=== PATIENT | male | born 2000 | race Caucasian/White ===

== ENCOUNTER 2024-07-23 09:56 | Emergency (ER) | payer BC, SELFPAY ==
--- OUTSIDE RECORDS SUMMARY | 2024-07-23 09:59 | XMS_ITS | Summary of Care ---
Author Organization [facility] Address Unknown Care Team Providers Care Neonatal Surgeon Name Role Phone Iva Duncan Primary Care Physician Encounter [employer] Date(s): 04/06/20 - 04/06/20 [facility] Encounter Diagnosis Hypothyroidism(Discharge Diagnosis) - 04/06/20 Diabetes mellitus type 1(Discharge Diagnosis) - 04/06/20 Discharge Disposition: Home/Self Care Attending Physician: Anna Katz Admitting Physician: Anna Katz Referring Physician: Iva Duncan MD Vital Signs Most recent to oldest [Reference Range]: 1 Chief Complaint diabetes follow up (04/06/20 2:17 PM) Pulse Rate [61-90 bpm] 68 bpm (04/06/20 2:17 PM) Blood Pressure [90-140/60-90 mm Hg] 113/ 60mm Hg (04/06/20 2:17 PM) Concerns about Pain No (04/06/20 2:17 PM) Height 176.5 cm (04/06/20 2:17 PM) Height Method Standing (04/06/20 2:17 PM) Weight 79.5 kg (04/06/20 2:17 PM) DOSING WEIGHT 79.500 kg (04/06/20 2:17 PM) Adjusted body weight 74.89 kg 1 (04/06/20 2:17 PM) [place] Body Weight 71.80 kg 2 (04/06/20 2:17 PM) [place] Body Weight Percentage 111.00 % 3 (04/06/20 2:17 PM) BSA 1.974 m2 (04/06/20 2:17 PM) Body Mass Index 25.5 kg/m2 (04/06/20 2:17 PM) 1Result Comment: Automatically calculated as a result of charting a height of 176.5 cm. 2Result Comment: Automatically calculated as a result of charting a height of 176.5 cm. 3Result Comment: Automatically calculated as a result of charting a height of 176.5 cm. Problem List Condition Effective Dates Status Health Status Inform ant Diabetes mellitus type 1(Confirmed) 05/30/10 Active GERD - Gastro-esophageal ref lux disease(Confirmed) Active patient Hypothyroidism(Confirmed) 07/10/11 Active Insulin pump(Confirmed) 1 Active Mild intermittent asthma(Confirmed) Active patient 1OmniPod pump Allergies, Adverse Reactions, Alerts Substance Reaction Severity Status Polytrim Active Medications BAQSIMI Two Pack 3 mg BAQSIMI Two Pack 3 mg, See Instructions, [place] one device (3mg) in one nostril to treat severe hypoglycemia., # 1 EACH, Refill(s) 3, Maintenance, Pharmacy: [id number], [facility]: [id number]; Please dispense 2-PACK; Fill ONLY when... Start Date: 04/06/20 Status: Ordered NovoLOG 100 units/mL subcutaneous solution See Instructions, Sub-Q, Average daily insulin dose is 150 units via pump. (90 day Rx), # 140 mL, 3Refill(s), Maintenance, [id number] Start Date: 04/06/20 Status: Ordered One Touch Delica Lancets One Touch Delica Lancets, See Instructions, using approx 1 to 3 lancets daily, # 100 EACH, Refill(s) 11, Maintenance, [id number], Fill only when requested please, 176.5, cm, 04/06/20 14:17:00 CDT, Height, 79.5, kg, 0... Start Date: 04/06/20 Status: Ordered Results Most recent to oldest [Reference Range]: 1 Hemoglobin A1C [4.2-6.3 % TTL Hgb] 6.7 % TTL Hgb *HI* (04/06/20 2:32 PM) External Total Cholesterol 151 mg/dL (01/05/20 9:10 AM) External LDL 77 mg/dL (01/05/20 9:10 AM) External Microalbumin/Creat Ratio-Urine 4.3 mg/g (01/05/20 9:10 AM) External TSH 3.30 uIU/mL (03/16/20 9:10 AM) External TTG 1.2 mg/dL (01/05/20 9:12 AM) Immunizations Given and Recorded Vaccine Date Status Refusal Reason .influenza vaccine, inactive, quadvlnt 05/06/19 Gi eris .influenza vaccine, inactive, quadvlnt 1 03/26/17 Recorded .influenza vaccine, inactive, quadvlnt 05/14/14 Gi eris 1Result Comment: [10/02/2017] MIIC reports given by primary Reason for Visit dbs
--- OUTSIDE RECORDS SUMMARY | 2024-07-23 09:59 | XMS_ITS | Summary of Care ---
Author Organization [facility] Care Team Providers Care Risk Intern Name Role Phone Iva Duncan Primary Care Physician Encounter [employer] Date(s): 10/16/17 - 10/16/17 [facility] Discharge Diagnosis: Diabetes mellitus type 1 Discharge Diagnosis: Hypothyroidism Discharge Disposition: Home/Self Care Attending Physician: Carine Cosby MD Admitting Physician: Carine Cosby MD Referring Physician: Iva Duncan MD Vital Signs Most recent to oldest [Reference Range]: 1 Chief Complaint diabetes clinic foll ow up (10/16/17 3:03 PM) Pulse Rate [55-90 bpm] 74 bpm (10/16/17 3:03 PM) Blood Pressure [90-138/45-84 mm Hg] 96/6 0mm Hg (10/16/17 3:03 PM) Systolic BP Percentile 1.51 (10/16/17 3:07 PM) Diastolic BP Percentile 24.99 (10/16/17 3:07 PM) Concerns about Pain No (10/16/17 3:03 PM) Height 175.8 cm (10/16/17 3:03 PM) Height Method Standing (10/16/17 3:03 PM) Weight 79.7 kg (10/16/17 3:03 PM) DOSING WEIGHT 79.700 kg (10/16/17 3:03 PM) [place] Body Weight 67.34 kg (10/16/17 3:03 PM) [place] Body Weight Percentage 118.00 % (10/16/17 3:03 PM) BSA 1.973 m2 (10/16/17 3:03 PM) Body Mass Index 25.8 kg/m2 (10/16/17 3:03 PM) BMI Percentile 86.28 (10/16/17 3:03 PM) Problem List Condition Effective Dates Status Health Status Inform ant Diabetes mellitus type 1(Confirmed) 05/30/10 Active GERD - Gastro-esophageal ref lux disease(Confirmed) Active patient Hypothyroidism(Confirmed) 07/10/11 Active Insulin pump(Confirmed) 1 Active Mild intermittent asthma(Confirmed) Active patient 1OmniPod pump Allergies, Adverse Reactions, Alerts Substance Reaction Severity Status Polytrim Active Medications levothyroxine 125 mcg (0.125 mg) oral tablet 125 mcg = 1 TABLET PO QDay, # 90 TABLET, 1 Refill(s), Maintenance, Pharmacy: [id number] Start Date: 10/16/17 Status: Ordered Results No data available for this section Immunizations Given and Recorded Vaccine Date Status Refusal Reason .influenza vaccine, inactive, quadvlnt 1 03/26/17 Recorded .influenza vaccine, inactive, quadvlnt 05/14/14 Gi eris 1Result Comment: [10/02/2017] MIIC reports given by primary Procedures No data available for this section Social History No data available for this section Assessment and Plan No data available for this section Reason for Visit DBS
--- OUTSIDE RECORDS SUMMARY | 2024-07-23 09:59 | XMS_ITS | Summary of Care ---
Author Organization [facility] Address Unknown Care Team Providers Care Skein Spooler Name Role Phone Iva Duncan Primary Care Physician [phone] Encounter [employer] Date(s): 02/04/19 - 02/04/19 [facility] Encounter Diagnosis Diabetes mellitus type 1(Discharge Diagnosis) - 02/04/19 Hypothyroidism(Discharge Diagnosis) - 02/04/19 Discharge Disposition: Home/Self Care Attending Physician: Carine Cosby MD Admitting Physician: Carine Cosby MD Referring Physician: Iva Duncan MD Vital Signs Most recent to oldest [Reference Range]: 1 Chief Complaint T1d, hypothyroidism (02/04/19 1:45 PM) Pulse Rate [61-90 bpm] 46 bpm *LOW* (02/04/19 12:33 PM) Blood Pressure [90-140/60-90 mm Hg] 120/ 70mm Hg (02/04/19 2:13 PM) Concerns about Pain No (02/04/19 12:33 PM) Height 177.2 cm (02/04/19 12:33 PM) Height Method Standing (02/04/19 12:33 PM) Weight 82.1 kg (02/04/19 12:33 PM) DOSING WEIGHT 82.100 kg (02/04/19 12:33 PM) Adjusted body weight 76.31 kg (02/04/19 12:33 PM) [place] Body Weight 70.95 kg 1 (02/04/19 12:33 PM) [place] Body Weight Percentage 116.00 % 2 (02/04/19 12:33 PM) BSA 2.01 m2 (02/04/19 12:33 PM) Body Mass Index 26.1 kg/m2 (02/04/19 12:33 PM) BMI Percentile 83.00 % 3 (02/04/19 12:33 PM) 1Result Comment: Automatically calculated as a result of charting a height of 177.2 cm. 2Result Comment: Automatically calculated as a result of charting a height of 177.2 cm. 3Result Comment: Automatically calculated as a result of charting a BMI of 26.1 Problem List Condition Effective Dates Status Health Status Inform ant Diabetes mellitus type 1(Confirmed) 05/30/10 Active GERD - Gastro-esophageal ref lux disease(Confirmed) Active patient Hypothyroidism(Confirmed) 07/10/11 Active Insulin pump(Confirmed) 1 Active Mild intermittent asthma(Confirmed) Active patient 1OmniPod pump Allergies, Adverse Reactions, Alerts Substance Reaction Severity Status Polytrim Active Medications Bactroban 2% topical cream 1 application Topically TID for 10 Days, Apply a thin film to skin lesion/infection until healed., # 15 g, 0 Refill(s), [id number] Start Date: 02/04/19 Stop Date: 02/14/19 Status: Ordered Results Most recent to oldest [Reference Range]: 1 Creatinine- Urine 240.00 mg/dL (02/04/19 2:14 PM) Hemoglobin A1C [4.2-6.3 % TTL Hgb] 7.7 % TTL Hgb *HI* (02/04/19 1:07 PM) Microalbumin- Urine 10.1 mg/L (02/04/19 2:14 PM) Microalbumin/Creatinine Ratio- Urine [0- 30 mg/g] 4.21 mg/g (02/04/19 2:14 PM) Immunizations Given and Recorded Vaccine Date Status Refusal Reason .influenza vaccine, inactive, quadvlnt 1 03/26/17 Recorded .influenza vaccine, inactive, quadvlnt 05/14/14 Gi eris 1Result Comment: [10/02/2017] MIIC reports given by primary Reason for Visit DBS[facility]
--- OUTSIDE RECORDS SUMMARY | 2024-07-23 09:59 | XMS_ITS | Summary of Care ---
Author Organization [facility] Address Unknown Care Team Providers Care Partition Assembler Name Role Phone Iva Duncan Primary Care Physician Encounter [employer] Date(s): 11/05/18 - 11/05/18 [facility] Encounter Diagnosis Diabetes mellitus type 1(Discharge Diagnosis) - 11/05/18 Hypothyroidism(Discharge Diagnosis) - 11/05/18 Discharge Disposition: Home/Self Care Attending Physician: Carine Cosby MD Admitting Physician: Carine Cosby MD Referring Physician: Iva Duncan MD Vital Signs Most recent to oldest [Reference Range]: 1 Pulse Rate [55-90 bpm] 68 bpm (11/05/18 1:20 PM) Blood Pressure [90-140/60-90 mm Hg] 122/ 68mm Hg (11/05/18 1:20 PM) Concerns about Pain No (11/05/18 1:20 PM) Height 176.4 cm (11/05/18 1:20 PM) Height Method Standing (11/05/18 1:20 PM) Weight 83.7 kg (11/05/18 1:20 PM) DOSING WEIGHT 83.700 kg (11/05/18 1:20 PM) Adjusted body weight 76.52 kg (11/05/18 1:20 PM) [place] Body Weight 69.87 kg 1 (11/05/18 1:20 PM) [place] Body Weight Percentage 120.00 % 2 (11/05/18 1:20 PM) BSA 2.025 m2 (11/05/18 1:20 PM) Body Mass Index 26.9 kg/m2 (11/05/18 1:20 PM) BMI Percentile 87.71 % 3 (11/05/18 1:20 PM) 1Result Comment: Automatically calculated as a result of charting a height of 176.4 cm. 2Result Comment: Automatically calculated as a result of charting a height of 176.4 cm. 3Result Comment: Automatically calculated as a result of charting a BMI of 26.9 Problem List Condition Effective Dates Status Health Status Inform ant Diabetes mellitus type 1(Confirmed) 05/30/10 Active GERD - Gastro-esophageal ref lux disease(Confirmed) Active patient Hypothyroidism(Confirmed) 07/10/11 Active Insulin pump(Confirmed) 1 Active Mild intermittent asthma(Confirmed) Active patient 1OmniPod pump Allergies, Adverse Reactions, Alerts Substance Reaction Severity Status Polytrim Active Medications No Known Medications Immunizations Given and Recorded Vaccine Date Status Refusal Reason .influenza vaccine, inactive, quadvlnt 1 03/26/17 Recorded .influenza vaccine, inactive, quadvlnt 05/14/14 Gi eris 1Result Comment: [10/02/2017] MIIC reports given by primary Reason for Visit DBS/[facility]
--- OUTSIDE RECORDS SUMMARY | 2024-07-23 09:59 | XMS_ITS | Summary of Care ---
Author Organization [facility] Care Team Providers Care Cat Skinner Name Role Phone Iva Duncan Primary Care Physician [phone] Encounter [employer] Date(s): 09/29/15 - 09/29/15 [facility] Discharge Diagnosis: Diabetes mellitus type 1 Discharge Diagnosis: Hypothyroidism Discharge Disposition: Home/Self Care Attending Physician: Mehul Lujan MD Admitting Physician: Mehul Lujan MD Referring Physician: Iva Duncan MD Vital Signs Most recent to oldest [Reference Range]: 1 Chief Complaint Diabetes clinic foll ow up (09/29/15 3:45 PM) Pulse Rate [55-90 bpm] 60 bpm (09/29/15 3:45 PM) Blood Pressure [90-138/45-84 mm Hg] 100/ 58mm Hg (09/29/15 3:45 PM) Concerns about Pain No (09/29/15 3:45 PM) Height 170.6 cm (09/29/15 3:45 PM) Weight 67.3 kg (09/29/15 3:45 PM) DOSING WEIGHT 67.300 kg (09/29/15 3:45 PM) BSA 1.786 m2 (09/29/15 3:45 PM) Body Mass Index 23.1 kg/m2 (09/29/15 3:45 PM) BMI Percentile 78.95 (09/29/15 3:45 PM) Problem List Condition Effective Dates Status Health Status Inform ant Diabetes mellitus type 1(Confirmed) 05/30/10 Active GERD - Gastro-esophageal ref lux disease(Confirmed) Active patient Hypothyroidism(Confirmed) 07/10/11 Active Insulin pump(Confirmed) 1 Active Mild intermittent asthma(Confirmed) Active patient 1OmniPod pump Allergies, Adverse Reactions, Alerts Substance Reaction Severity Status Polytrim Active Medications No Known Medications Results No data available for this section Immunizations Vaccine Date Refusal Reason .influenza vaccine, inactive, quadvlnt 05/14/14 Procedures No data available for this section Social History No data available for this section Assessment and Plan No data available for this section Reason for Visit dbs
--- OUTSIDE RECORDS SUMMARY | 2024-07-23 09:59 | XMS_ITS | Summary of Care ---
Author Organization [facility] Address Unknown Care Team Providers Care Pesticide Applicator Name Role Phone Iva Duncan Primary Care Physician [phone] Encounter [employer] Date(s): 04/16/18 - 04/16/18 [facility] Encounter Diagnosis Diabetes mellitus type 1(Discharge Diagnosis) - 04/16/18 Hypothyroidism(Discharge Diagnosis) - 04/16/18 Discharge Disposition: Home/Self Care Attending Physician: Carine Cosby MD Admitting Physician: Carine Cosby MD Referring Physician: Iva Duncan MD Vital Signs Most recent to oldest [Reference Range]: 1 Chief Complaint T1D (04/16/18 5:26 PM) Apical Heart Rate [60-100 bpm] 46 bpm *LOW* (04/16/18 4:16 PM) Blood Pressure [90-140/60-90 mm Hg] 112/ 60mm Hg (04/16/18 4:16 PM) Concerns about Pain No (04/16/18 4:16 PM) Height 176.4 cm (04/16/18 4:16 PM) Height Method Standing (04/16/18 4:16 PM) Weight 78.4 kg (04/16/18 4:16 PM) DOSING WEIGHT 78.400 kg (04/16/18 4:16 PM) Adjusted body weight 74.40 kg (04/16/18 4:16 PM) [place] Body Weight 68.78 kg 1 (04/16/18 4:16 PM) [place] Body Weight Percentage 114.00 % 2 (04/16/18 4:16 PM) BSA 1.96 m2 (04/16/18 4:16 PM) Body Mass Index 25.2 kg/m2 (04/16/18 4:16 PM) BMI Percentile 81.06 % 3 (04/16/18 4:16 PM) 1Result Comment: Automatically calculated as a result of charting a height of 176.4 cm. 2Result Comment: Automatically calculated as a result of charting a height of 176.4 cm. 3Result Comment: Automatically calculated as a result of charting a BMI of 25.2 Problem List Condition Effective Dates Status Health [...]
--- OUTSIDE RECORDS SUMMARY | 2024-07-23 09:59 | XMS_ITS | Summary of Care ---
Author Organization [facility] Care Team Providers Care Fuel Manager Name Role Phone Iva Duncan Primary Care Physician [phone] Encounter [employer] Date(s): 08/21/16 - 08/21/16 [facility] Discharge Diagnosis: Hypothyroidism Discharge Diagnosis: Diabetes mellitus type 1 Discharge Disposition: Home/Self Care Attending Physician: Mehul Lujan MD Admitting Physician: Mehul Lujan MD Referring Physician: Iva Duncan MD Vital Signs Most recent to oldest [Reference Range]: 1 Chief Complaint Endocrine follow up (08/21/16 3:00 PM) Blood Pressure [90-138/45-84 mm Hg] 98/6 2mm Hg (08/21/16 3:00 PM) Concerns about Pain No (08/21/16 3:00 PM) Height 173.4 cm (08/21/16 3:00 PM) Weight 74.3 kg (08/21/16 3:00 PM) DOSING WEIGHT 74.300 kg (08/21/16 3:00 PM) [place] Body Weight 63.19 kg (08/21/16 3:00 PM) BSA 1.892 m2 (08/21/16 3:00 PM) Body Mass Index 24.7 kg/m2 (08/21/16 3:00 PM) BMI Percentile 84.99 (08/21/16 3:00 PM) Problem List Condition Effective Dates Status [...] Status Refusal Reason .influenza vaccine, inactive, quadvlnt 05/14/14 Gi eris Procedures No data available for this section Social History No data available for this section Assessment and Plan No data available for this section Reason for Visit DBS
--- OUTSIDE RECORDS SUMMARY | 2024-07-23 09:59 | XMS_ITS | Summary of Care ---
Author Organization [facility] Care Team Providers Care Private Chef Name Role Phone Iva Duncan Primary Care Physician Encounter [employer] Date(s): 01/12/16 - 01/12/16 [facility] Discharge Diagnosis: Hypothyroidism Discharge Diagnosis: Diabetes mellitus type 1 Discharge Disposition: Home/Self Care Attending Physician: Mehul Lujan MD Admitting Physician: Mehul Lujan MD Referring Physician: Iva Duncan MD Vital Signs Most recent to oldest [Reference Range]: 1 Chief Complaint diabetes clinic foll ow up (01/12/16 8:49 AM) Apical Heart Rate [60-100 bpm] 46 bpm *LOW* (01/12/16 8:49 AM) Blood Pressure [90-138/45-84 mm Hg] 102/ 48mm Hg (01/12/16 8:49 AM) Concerns about Pain No (01/12/16 8:49 AM) Height 172.6 cm (01/12/16 8:49 AM) Height Method Standing (01/12/16 8:49 AM) Weight 68.6 kg (01/12/16 8:49 AM) DOSING WEIGHT 68.600 kg (01/12/16 8:49 AM) BSA 1.814 m2 (01/12/16 8:49 AM) Body Mass Index 23 kg/m2 (01/12/16 8:49 AM) BMI Percentile 76.78 (01/12/16 8:49 AM) Problem List Condition Effective Dates Status Health Status Inform ant Diabetes mellitus type 1(Confirmed) 05/30/10 Active GERD - Gastro-esophageal ref lux disease(Confirmed) Active patient Hypothyroidism(Confirmed) 07/10/11 Active Insulin pump(Confirmed) 1 Active Mild intermittent asthma(Confirmed) Active patient 1OmniPod pump Allergies, Adverse Reactions, Alerts Substance Reaction Severity Status Polytrim Active Medications levothyroxine 75 mcg (0.075 mg) oral tablet 75 mcg = 1 TABLET PO QDay, # 100 TABLET, 4 Refill(s), Maintenance, Pharmacy: [id number] Start Date: 01/12/16 Status: Ordered Results No data available for this section Immunizations Vaccine Date Refusal Reason .influenza vaccine, inactive, quadvlnt 05/14/14 Procedures No data available for this section Social History No data available for this section Assessment and Plan No data available for this section Reason for Visit DBS
--- OUTSIDE RECORDS SUMMARY | 2024-07-23 09:59 | XMS_ITS | Summary of Care ---
Author Organization [facility] Care Team Providers Care Bankman Name Role Phone Iva Duncan Primary Care Physician [phone] Encounter [employer] Date(s): 04/04/17 - 04/04/17 [facility] Discharge Diagnosis: Diabetes mellitus type 1 Discharge Diagnosis: Hypothyroidism Discharge Disposition: Home/Self Care Attending Physician: Mehul Lujan MD Admitting Physician: Mehul Lujan MD Referring Physician: Iva Duncan MD Vital Signs Most recent to oldest [Reference Range]: 1 Chief Complaint diabetes clinic foll ow up (04/04/17 3:27 PM) Apical Heart Rate [60-100 bpm] 60 bpm (04/04/17 3:27 PM) Blood Pressure [90-138/45-84 mm Hg] 118/ 60mm Hg (04/04/17 3:27 PM) Systolic BP Percentile 46.47 (04/04/17 3:29 PM) Diastolic BP Percentile 24.66 (04/04/17 3:29 PM) Concerns about Pain No (04/04/17 3:27 PM) Height 176.0 cm (04/04/17 3:27 PM) Height Method Standing (04/04/17 3:27 PM) Weight 74.0 kg (04/04/17 3:27 PM) DOSING WEIGHT 74.000 kg (04/04/17 3:27 PM) [place] Body Weight 66.49 kg (04/04/17 3:27 PM) BSA 1.902 m2 (04/04/17 3:27 PM) Body Mass Index 23.9 kg/m2 (04/04/17 3:27 PM) BMI Percentile 76.78 (04/04/17 3:27 PM) Problem List Condition Effective Dates Status [...]
--- OUTSIDE RECORDS SUMMARY | 2024-07-23 09:59 | XMS_ITS | Summary of Care ---
Author Organization [facility] Address Unknown Care Team Providers Care Chef French Name Role Phone Iva Dunacn Primary Care Physician [phone] Encounter [email or web address] Date(s): 07/16/18 - 07/16/18 [facility] Encounter Diagnosis Diabetes mellitus type 1(Discharge Diagnosis) - 07/15/18 Hypothyroidism(Discharge Diagnosis) - 07/15/18 Discharge Disposition: Home/Self Care Attending Physician: Carine Cosby MD Admitting Physician: Carine Cosby MD Referring Physician: Iva Duncan MD Vital Signs Most recent to oldest [Reference Range]: 1 Chief Complaint T1D, hypothyroidism (07/15/18 9:04 PM) Concerns about Pain No (07/16/18 2:12 PM) Height 175.5 cm (07/16/18 2:12 PM) Height Method Standing (07/16/18 2:12 PM) Weight 82.7 kg (07/16/18 2:12 PM) DOSING WEIGHT 82.700 kg (07/16/18 2:12 PM) Adjusted body weight 75.63 kg (07/16/18 2:12 PM) [place] Body Weight 68.55 kg 1 (07/16/18 2:12 PM) [place] Body Weight Percentage 121.00 % 2 (07/16/18 2:12 PM) BSA 2.008 m2 (07/16/18 2:12 PM) Body Mass Index 26.9 kg/m2 (07/16/18 2:12 PM) BMI Percentile 88.67 % 3 (07/16/18 2:12 PM) 1Result Comment: Automatically calculated as a result of charting a height of 175.5 cm. 2Result Comment: Automatically calculated as a result of charting a height of 175.5 cm. 3Result Comment: Automatically calculated as a result of charting a BMI of 26.9 Problem List Condition Effective Dates Status Health Status Inform ant Diabetes mellitus type 1(Confirmed) 05/30/10 Active GERD - Gastro-esophageal ref lux disease(Confirmed) Active patient Hypothyroidism(Confirmed) 07/10/11 Active Insulin pump(Confirmed) 1 Active Mild intermittent asthma(Confirmed) Active patient 1OmniPod pump Allergies, Adverse Reactions, Alerts Substance Reaction Severity Status Polytrim Active Medications Glucagon Emergency Kit for Low Blood Sugar 1 mg injection 1 mg IntraMuscular Once, use for severe hypoglycemia, # 2 kit(s), 11 Refill(s), Soft Stop, Pharmacy: [facility] Start Date: 07/16/18 Status: Ordered Lantus Solostar Pen 100 units/mL subcutaneous solution See Instructions, 24 units Sub-Q nightly at 9pm as needed when Omnipod not working, # 15 mL, 4 Refill(s), Maintenance, Pharmacy: [facility] Start Date: 07/16/18 Status: Ordered NovoLOG 100 units/mL subcutaneous solution See Instructions, Sub-Q, Average daily insulin dose is 150 units via pump. (90 day Rx), # 14 Vial, 3 Refill(s), Maintenance, Pharmacy: [facility] Start Date: 07/16/18 Status: Ordered Immunizations Given and Recorded Vaccine Date Status Refusal Reason .influenza vaccine, inactive, quadvlnt 1 03/26/17 Recorded .influenza vaccine, inactive, quadvlnt 05/14/14 Gi eris 1Result Comment: [10/02/2017] MIIC reports given by primary Reason for Visit DBS
--- OUTSIDE RECORDS SUMMARY | 2024-07-23 09:59 | XMS_ITS | Summary of Care ---
Author Organization [facility] Address Unknown Care Team Providers Care Patent Law Specialist Name Role Phone Iva Duncan Primary Care Physician [phone] Encounter [employer] Date(s): 01/15/18 - 01/15/18 [facility] Encounter Diagnosis Diabetes mellitus type 1(Discharge Diagnosis) - 01/13/18 Hypothyroidism(Discharge Diagnosis) - 01/13/18 Discharge Disposition: Home/Self Care Attending Physician: Carine Cosby MD Admitting Physician: Carine Cosby MD Referring Physician: Iva Duncan MD Vital Signs Most recent to oldest [Reference Range]: 1 Chief Complaint Diabetes clinic foll ow up (01/15/18 12:36 PM) Pulse Rate [55-90 bpm] 52 bpm *LOW* (01/15/18 12:36 PM) Blood Pressure [90-140/60-90 mm Hg] 120/ 74mm Hg (01/15/18 12:36 PM) Concerns about Pain No (01/15/18 12:36 PM) Height 176.2 cm (01/15/18 12:36 PM) Height Method Standing (01/15/18 12:36 PM) Weight 78.9 kg (01/15/18 12:36 PM) DOSING WEIGHT 78.900 kg (01/15/18 12:36 PM) [place] Body Weight 68.14 kg (01/15/18 12:36 PM) [place] Body Weight Percentage 116.00 % (01/15/18 12:36 PM) BSA 1.965 m2 (01/15/18 12:36 PM) Body Mass Index 25.4 kg/m2 (01/15/18 12:36 PM) BMI Percentile 83.31 (01/15/18 12:36 PM) Problem List Condition Effective Dates Status [...]
--- OUTSIDE RECORDS SUMMARY | 2024-07-23 09:59 | XMS_ITS | Summary of Care ---
Author Organization [facility] Care Team Providers Care Music Video Director Name Role Phone Iva Duncan Primary Care Physician [phone] Encounter [employer] Date(s): 11/29/16 - 11/29/16 [facility] Discharge Diagnosis: Diabetes mellitus type 1 Discharge Diagnosis: Hypothyroidism Discharge Disposition: Home/Self Care Attending Physician: Mehul Lujan MD Admitting Physician: Mehul Lujan MD Referring Physician: Iva Duncan MD Vital Signs Most recent to oldest [Refer ence Range]: 1 2 Chief Complaint 176Diabetes follow u p appt (11/29/16 9:00 AM) Apical Heart Rate [60-100 bpm] 72 bpm (11/29/16 9:00 AM) Blood Pressure [90-138/45-84 mm Hg] 120/ 68mm Hg (11/29/16 9:00 AM) Concerns about Pain No (11/29/16 9:00 AM) Height 176 cm (11/29/16 9:00 AM) Height Method Standing (11/29/16 9:00 AM) Weight 74.0 kg (11/29/16 9:00 AM) DOSING WEIGHT 74.000 kg (11/29/16 9:00 AM) [place] Body Weight 65.35 kg (11/29/16 9:00 AM) 65.80 kg (11/29/16 9:00 AM) BSA 1.902 m2 (11/29/16 9:00 AM) Body Mass Index 23.9 kg/m2 (11/29/16 9:00 AM) BMI Percentile 78.57 (11/29/16 9:00 AM) Problem List Condition Effective Dates Status Health Status Inform ant Diabetes mellitus type 1(Confirmed) 05/30/10 Active GERD - Gastro-esophageal ref lux disease(Confirmed) Active patient Hypothyroidism(Confirmed) 07/10/11 Active Insulin pump(Confirmed) 1 Active Mild intermittent asthma(Confirmed) Active patient 1OmniPod pump Allergies, Adverse Reactions, Alerts Substance Reaction Severity Status Polytrim Active Medications Lantus Solostar Pen 100 units/mL subcutaneous solution See Instructions, 23 units Sub-Q nightly at 9pm as needed when Omnipod not working, # 3 mL, 4 Refill(s), Maintenance, other Start Date: 11/29/16 Status: Ordered Results No data available for this section Immunizations Given and Recorded Vaccine Date Status Refusal Reason .influenza vaccine, inactive, quadvlnt 05/14/14 Gi eris Procedures No data available for this section Social History No data available for this section Assessment and Plan No data available for this section Reason for Visit DBS
--- OUTSIDE RECORDS SUMMARY | 2024-07-23 09:59 | XMS_ITS | Summary of Care ---
Author Organization [facility] Address Unknown Care Team Providers Care Barber Apprentice Name Role Phone Iva Duncan Primary Care Physician [phone] Encounter [employer] Date(s): 07/06/20 - 07/06/20 [facility] Encounter Diagnosis Diabetes mellitus type 1(Discharge Diagnosis) - 07/06/20 Discharge Disposition: Home/Self Care Attending Physician: Anna Katz Admitting Physician: Anna Katz Referring Physician: Iva Duncan MD Vital Signs Most recent to oldest [Reference Range]: 1 Chief Complaint DIABETES FOLLOW UP (07/06/20 1:18 PM) Pulse Rate [61-90 bpm] 64 bpm (07/06/20 1:18 PM) Blood Pressure [90-140/60-90 mm Hg] 144/ 68mm Hg *HI* (07/06/20 1:18 PM) Concerns about Pain No (07/06/20 1:18 PM) Height 177.2 cm (07/06/20 1:18 PM) Height Method Standing (07/06/20 1:18 PM) Weight 81.8 kg (07/06/20 1:18 PM) DOSING WEIGHT 81.800 kg (07/06/20 1:18 PM) Adjusted body weight 76.19 kg 1 (07/06/20 1:18 PM) [place] Body Weight 72.50 kg 2 (07/06/20 1:18 PM) [place] Body Weight Percentage 113.00 % 3 (07/06/20 1:18 PM) BSA 2.007 m2 (07/06/20 1:18 PM) Body Mass Index 26.1 kg/m2 (07/06/20 1:18 PM) 1Result Comment: Automatically calculated as a result of charting a height of 177.2 cm. 2Result Comment: Automatically calculated as a result of charting a height of 177.2 cm. 3Result Comment: Automatically calculated as a result of charting a height of 177.2 cm. Problem List Condition Effective Dates Status Health Status Inform ant Diabetes mellitus type 1(Confirmed) 05/30/10 Active GERD - Gastro-esophageal ref lux disease(Confirmed) Active patient Hypothyroidism(Confirmed) 07/10/11 Active Insulin pump(Confirmed) 1 Active Mild intermittent asthma(Confirmed) Active patient 1OmniPod pump Allergies, Adverse Reactions, Alerts Substance Reaction Severity Status Polytrim Active Medications BAQSIMI Two Pack 3 mg BAQSIMI Two Pack 3 mg, See Instructions, [place] one device (3mg) in one nostril to treat severe hypoglycemia., # 1 EACH, Refill(s) 3, Maintenance, Pharmacy: [id number], [facility]: [id number]; Please dispense 2-PACK; Rx update. Fill... Start Date: 07/06/20 Status: Ordered BD Ultra-Fine Insulin Syringes 1cc, 5/16, 31G BD Ultra-Fine Insulin Syringes 1cc, 516, 31G, See Instructions, Pt administering insulin up to 6x/day. [facility]# [id number], # 200 EACH, Refill(s) 11, Maintenance, Pharmacy: [id number], Rx update. Fill only when requested.... Start Date: 07/06/20 Status: Ordered BD Ultra-Fine Mini Pen Needle 5mm (16) x 31g BD Ultra-Fine Mini Pen Needle 5mm (16) x 31g, See Instructions, for insulin injections 6 times daily. Dx code: E10.65, # 200 EACH, Refill(s) 11, Maintenance, Pharmacy: [id number], Rx update. Fill only when requested., 177.2... Start Date: 07/06/20 Status: Ordered Freestyle Blood Glucose Test Strips Freestyle Blood Glucose Test Strips, See Instructions, Pt testing BG up to 8x/day. Dx code: E10.65,# 750 EACH, Refill(s) 3, Maintenance, Pharmacy: [id number], Rx update. Fill only when requested., 177.2, cm, 07/06/20 13:18:00... Start Date: 07/06/20 Status: Ordered Glucagon Emergency Kit for Low Blood Sugar 1 mg injection = 1 mg IntraMuscular Once, Administer 1 mg for severe hypoglycemia. (dx code: E10.65), # 1 kit(s), 11 Refill(s), Soft Stop, Pharmacy: [id number], Rx update. Fill only when requested. Start Date: 07/06/20 Status: Ordered Lantus Solostar Pen 100 units/mL subcutaneous solution 25 Units Sub-Q QDay, Use in case of pump failure. Dose may be titrated per clinic. Dx code: E10.65,# 15 mL, 11 Refill(s), Maintenance, Pharmacy: [id number], Rx update. Fill only when requested. Start Date: 07/06/20 Stop Date: 07/01/21 Status: Ordered NovoLOG 100 units/mL subcutaneous solution See Instructions, Sub-Q, Average daily insulin dose is 150 units via pump. (90 day Rx), # 140 mL, 3Refill(s), Maintenance, Pharmacy: [id number], Rx update. Fill only when requested. Start Date: 07/06/20 Status: Ordered One Touch Delica Lancets One Touch Delica Lancets, See Instructions, using approx 1 to 3 lancets daily, # 100 EACH, Refill(s) 11, Maintenance, Pharmacy: [id number], Rx update. 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 Start Date: 07/06/20 Status: Ordered Urine Ketostix Urine Ketostix, See Instructions, Test urine ketones when sick or when BG >300. (dx code: E10.65), # 1 kit(s), Refill(s) 11, Maintenance, Pharmacy: [id number], Rx update. Fill only when requested., 177.2, cm, 07/06/20 13:18:00... Start Date: 07/06/20 Status: Ordered Results Most recent to oldest [Reference Range]: 1 Hemoglobin A1C [4.2-6.3 % TTL Hgb] 7.0 % TTL Hgb *HI* (07/06/20 1:15 PM) Immunizations Given and Recorded Vaccine Date Status Refusal Reason .influenza vaccine, inactive, quadvlnt 05/06/19 Gi eris .influenza vaccine, inactive, quadvlnt 1 03/26/17 Recorded .influenza vaccine, inactive, quadvlnt 05/14/14 Gi eris 1Result Comment: [10/02/2017] MIIC reports given by primary Reason for Visit DBS
--- OUTSIDE RECORDS SUMMARY | 2024-07-23 09:59 | XMS_ITS | Summary of Care ---
Author Organization [facility] Care Team Providers Care Housekeeping Aid Name Role Phone Iva Duncan Primary Care Physician Encounter [employer] Date(s): 07/10/17 - 07/10/17 [facility] Discharge Diagnosis: Diabetes mellitus type 1 Discharge Diagnosis: Hypothyroidism Discharge Disposition: Home/Self Care Attending Physician: Carine Cosby MD Admitting Physician: Carine Cosby MD Referring Physician: Iva Duncan MD Vital Signs Most recent to oldest [Reference Range]: 1 Chief Complaint T1D, hypothyroidism (07/10/17 5:45 PM) Apical Heart Rate [60-100 bpm] 60 bpm (07/10/17 2:21 PM) Blood Pressure [90-138/45-84 mm Hg] 98/5 8mm Hg (07/10/17 2:21 PM) Systolic BP Percentile 2.64 (07/10/17 2:30 PM) Diastolic BP Percentile 20.23 (07/10/17 2:30 PM) Concerns about Pain No (07/10/17 2:21 PM) Height 174.8 cm (07/10/17 2:21 PM) Weight 75.8 kg (07/10/17 2:21 PM) DOSING WEIGHT 75.800 kg (07/10/17 2:21 PM) [place] Body Weight 66.09 kg (07/10/17 2:21 PM) BSA 1.918 m2 (07/10/17 2:21 PM) Body Mass Index 24.8 kg/m2 (07/10/17 2:21 PM) BMI Percentile 81.83 (07/10/17 2:21 PM) Problem List Condition Effective Dates Status Health Status Inform ant Diabetes mellitus type 1(Confirmed) 05/30/10 Active GERD - Gastro-esophageal ref lux disease(Confirmed) Active patient Hypothyroidism(Confirmed) 07/10/11 Active Insulin pump(Confirmed) 1 Active Mild intermittent asthma(Confirmed) Active patient 1OmniPod pump Allergies, Adverse Reactions, Alerts Substance Reaction Severity Status Polytrim Active Medications cholecalciferol (Vitamin D3) 2,000 units oral tablet 0 Refill(s), Maintenance Start Date: 07/10/17 Status: Ordered Glucagon Emergency Kit for Low Blood Sugar 1 mg injection 1 mg IntraMuscular Once, use for severe hypoglycemia, # 2 kit(s), 11 Refill(s), Soft Stop, Pharmacy: [id number] Start Date: 07/10/17 Status: Ordered Lantus Solostar Pen 100 units/mL subcutaneous solution See Instructions, 23 units Sub-Q nightly at 9pm as needed when Omnipod not working, # 3 mL, 4 Refill(s), Maintenance, Pharmacy: [facility] Start Date: 07/10/17 Status: Ordered NovoLOG 100 units/mL subcutaneous solution See Instructions, Sub-Q, Average daily insulin dose is 150 units via pump. (90 day Rx), # 14 Vial, 3 Refill(s), Maintenance, Pharmacy: [id number] Start Date: 07/10/17 Status: Ordered Results No data available for this section Immunizations Given and Recorded Vaccine Date Status Refusal Reason .influenza vaccine, inactive, quadvlnt 05/14/14 Gi eris Procedures No data available for this section Social History No data available for this section Assessment and Plan No data available for this section Reason for Visit DBS
--- OUTSIDE RECORDS SUMMARY | 2024-07-23 09:59 | XMS_ITS | Summary of Care ---
Author Organization [facility] Address Unknown Care Team Providers Care Vp Ancillary Name Role Phone Iva Duncan Primary Care Physician [phone] Encounter [employer] Date(s): 02/13/18 - 02/13/18 [facility] Discharge Disposition: Home/Self Care Attending Physician: Alea WILLETT, Carine Joy Admitting Physician: Nurse Visit , Provider Problem List Condition Effective Dates Status Health Status Inform ant Diabetes mellitus type 1(Confirmed) 05/30/10 Active GERD - Gastro-esophageal ref lux disease(Confirmed) Active patient Hypothyroidism(Confirmed) 07/10/11 Active Insulin pump(Confirmed) 1 Active Mild intermittent asthma(Confirmed) Active patient 1OmniPod pump Allergies, Adverse Reactions, Alerts Substance Reaction Severity Status Polytrim Active Immunizations Given and Recorded Vaccine Date Status Refusal Reason .influenza vaccine, inactive, quadvlnt 1 03/26/17 Recorded .influenza vaccine, inactive, quadvlnt 05/14/14 Gi eris 1Result Comment: [10/02/2017] MIIC reports given by primary Reason for Visit Teen Transition Class
--- OUTSIDE RECORDS SUMMARY | 2024-07-23 09:59 | XMS_ITS | Summary of Care ---
Author Organization [facility] Address Unknown Care Team Providers Care Skiver Operator Name Role Phone Iva Duncan Primary Care Physician Encounter [employer] Date(s): 05/06/19 - 05/06/19 [facility] Encounter Diagnosis Diabetes mellitus type 1(Discharge Diagnosis) - 05/06/19 Hypothyroidism(Discharge Diagnosis) - 05/06/19 Discharge Disposition: Home/Self Care Attending Physician: Carine Cosby MD Admitting Physician: Carine Cosby MD Referring Physician: Iva Duncan MD Vital Signs Most recent to oldest [Reference Range]: 1 Chief Complaint T1D (05/06/19 2:26 PM) Pulse Rate [61-90 bpm] 74 bpm (05/06/19 12:37 PM) Blood Pressure [90-140/60-90 mm Hg] 120/ 62mm Hg (05/06/19 12:37 PM) Concerns about Pain No (05/06/19 12:37 PM) Height 177.0 cm (05/06/19 12:37 PM) Height Method Standing (05/06/19 12:37 PM) Weight 82.2 kg (05/06/19 12:37 PM) DOSING WEIGHT 82.200 kg (05/06/19 12:37 PM) Adjusted body weight 76.25 kg (05/06/19 12:37 PM) [place] Body Weight 71.23 kg 1 (05/06/19 12:37 PM) [place] Body Weight Percentage 115.00 % 2 (05/06/19 12:37 PM) BSA 2.01 m2 (05/06/19 12:37 PM) Body Mass Index 26.2 kg/m2 (05/06/19 12:37 PM) BMI Percentile 82.59 % 3 (05/06/19 12:37 PM) 1Result Comment: Automatically calculated as a result of charting a height of 177.0 cm. 2Result Comment: Automatically calculated as a result of charting a height of 177.0 cm. 3Result Comment: Automatically calculated as a result of charting a BMI of 26.2 Problem List Condition Effective Dates Status Health Status Inform ant Diabetes mellitus type 1(Confirmed) 05/30/10 Active GERD - Gastro-esophageal ref lux disease(Confirmed) Active patient Hypothyroidism(Confirmed) 07/10/11 Active Insulin pump(Confirmed) 1 Active Mild intermittent asthma(Confirmed) Active patient 1OmniPod pump Allergies, Adverse Reactions, Alerts Substance Reaction Severity Status Polytrim Active Medications Zofran 8 mg oral tablet See Instructions, 1 TABLET PO TID as needed, must check ketones as well, # 18 TABLET, 1 Refill(s), Maintenance, Pharmacy: [id number] Start Date: 05/06/19 Status: Ordered Results Most recent to oldest [Reference Range]: 1 Hemoglobin A1C [4.2-6.3 % TTL Hgb] 7.1 % TTL Hgb *HI* (05/06/19 12:43 PM) Immunizations Given and Recorded Vaccine Date Status Refusal Reason .influenza vaccine, inactive, quadvlnt 05/06/19 Gi eris .influenza vaccine, inactive, quadvlnt 1 03/26/17 Recorded .influenza vaccine, inactive, quadvlnt 05/14/14 Gi eris 1Result Comment: [10/02/2017] MIIC reports given by primary Reason for Visit dbs
--- OUTSIDE RECORDS SUMMARY | 2024-07-23 09:59 | XMS_ITS | Summary of Care ---
Author Organization [facility] Care Team Providers Care Vice President Business Development Name Role Phone Iva Duncan Primary Care Physician Encounter [place] Date(s): 06/23/15 - 06/23/15 [facility] Discharge Disposition: Home/Self Care Attending Physician: Mehul Lujan MD Admitting Physician: Mehul Lujan MD Referring Physician: Iva Duncan MD Vital Signs Most recent to oldest [Reference Range]: 1 Chief Complaint Diabetes clinic foll ow up (06/23/15 12:44 PM) Pulse Rate [55-90 bpm] 64 bpm (06/23/15 12:44 PM) Blood Pressure [90-138/45-84 mm Hg] 118/ 70mm Hg (06/23/15 12:44 PM) Concerns about Pain No (06/23/15 12:44 PM) Height 169 cm (06/23/15 12:44 PM) Weight 64.4 kg (06/23/15 12:44 PM) DOSING WEIGHT 64.400 kg (06/23/15 12:44 PM) BSA 1.739 m2 (06/23/15 12:44 PM) Body Mass Index 22.5 kg/m2 (06/23/15 12:44 PM) BMI Percentile 76.25 (06/23/15 12:44 PM) Problem List Condition Effective Dates Status Health Status Inform ant Diabetes mellitus type 1(Confirmed) 05/30/10 Active GERD - Gastro-esophageal ref lux disease(Confirmed) Active patient Hypothyroidism(Confirmed) 07/10/11 Active Insulin pump(Confirmed) 1 Active Mild intermittent asthma(Confirmed) Active patient 1OmniPod pump Allergies, Adverse Reactions, Alerts Substance Reaction Severity Status Polytrim Active Medications Lantus Solostar Pen 100 units/mL subcutaneous solution See Instructions, 22 units Sub-Q nightly at 9pm as needed when Omnipod not working, # 3 mL, 4 Refill(s), Maintenance, other Start Date: 06/23/15 Status: Ordered Results No data available for this section Immunizations Vaccine Date Refusal Reason .influenza vaccine, inactive, quadvlnt 05/14/14 Procedures No data available for this section Social History No data available for this section Assessment and Plan No data available for this section Reason for Visit DBS
--- OUTSIDE RECORDS SUMMARY | 2024-07-23 10:00 | XMS_ITS | Summary of Care ---
Author Organization [facility] Address Unknown Care Team Providers Care Senior Talent Acquisition Specialist Name Role Phone Iva Duncan Primary Care Physician Encounter [employer] Date(s): 09/16/19 - 09/16/19 [facility] Encounter Diagnosis Diabetes mellitus type 1(Discharge Diagnosis) - 09/16/19 Discharge Disposition: Home/Self Care Attending Physician: Carine Cosby MD Admitting Physician: Carine Cosby MD Referring Physician: Iva Duncan MD Vital Signs Most recent to oldest [Reference Range]: 1 Chief Complaint T1D, hypothyroidism (09/16/19 1:25 PM) Pulse Rate [61-90 bpm] 70 bpm (09/16/19 12:33 PM) Blood Pressure [90-140/60-90 mm Hg] 138/ 60mm Hg (09/16/19 12:40 PM) Concerns about Pain No (09/16/19 12:33 PM) Height 176.5 cm (09/16/19 12:33 PM) Height Method Standing (09/16/19 12:33 PM) Weight 79.7 kg (09/16/19 12:33 PM) DOSING WEIGHT 79.700 kg (09/16/19 12:33 PM) Adjusted body weight 74.97 kg (09/16/19 12:33 PM) [place] Body Weight 71.38 kg 1 (09/16/19 12:33 PM) [place] Body Weight Percentage 112.00 % 2 (09/16/19 12:33 PM) BSA 1.977 m2 (09/16/19 12:33 PM) Body Mass Index 25.6 kg/m2 (09/16/19 12:33 PM) 1Result Comment: Automatically calculated as [...] Polytrim Active Medications No Known Medications Results Most recent to oldest [Reference Range]: 1 Hemoglobin A1C [4.2-6.3 % TTL Hgb] 7.1 % TTL Hgb *HI* (09/16/19 12:31 PM) Immunizations Given and Recorded Vaccine Date Status Refusal Reason .influenza vaccine, inactive, quadvlnt 05/06/19 Gi eris .influenza vaccine, inactive, quadvlnt 1 03/26/17 Recorded .influenza vaccine, inactive, quadvlnt 05/14/14 Gi eris 1Result Comment: [10/02/2017] MIIC reports given by primary Reason for Visit dbs
[2024-07-23 10:15] VITALS: BP 170/74; PULSE 103; RESP 20; TEMP 38.5; O2SAT 108; BMI 27.3
[2024-07-23 11:03] VITALS: TEMP 38.5
[2024-07-23] MEDS: ACETAMINOPHEN 500 MG TABLET 1000 MG PO (11:03)
[2024-07-23] MEDS: 0.9 % SODIUM CHLORIDE 1000 ml 1,000 ML IV (11:03)
[2024-07-23 11:10] LABS: PCR FLU A POSITIVE PCR FLU A (Negative); PCR FLU B Negative PCR FLU B (Negative); PCR RSV Negative PCR RSV (Negative); SARS PCR* Negative SARS-CoV-2 (Negative)
[2024-07-23 11:21] LABS: HCO3 VBG 27 mmol/L (21-28); Lactate* 0.8 mmol/L (0.5-1.9); PCO2 VBG 43 mmHG (40-50); PO2 VBG 43.5 mmHG (25-47); pH VBG 7.402 (7.32-7.43)
--- NOTE | 2024-07-23 11:21 | ED.GENADULT ---
HPI - General Adult General Chief complaint: Fever Stated complaint: T1 Diabetic /vomiting Time Seen by Provider: 07/23/24 10:49 Source: patient Mode of arrival: ambulatory Limitations: no limitations History of Present Illness HPI narrative: 23-year-old male presenting today with fevers, vomiting, diarrhea and body aches started yesterday. No sick contacts that he is aware of. Patient with type of headache, glucose has been running a bit elevated, in the 200s. No abdominal pain. Related Data Home Medications ?Medication ?Instructions ?Recorded ?Confirmed insulin aspart U-100 100 unit/mL 0 - 85 unit subcut DAILY 07/23/24 07/23/24 subcutaneous solution (Novolog U-100 Insulin aspart) levothyroxine 137 mcg tablet 137 mcg PO DAILY 07/23/24 07/23/24 lisinopril 10 mg tablet mg PO 07/23/24 Previous Rx's ?Medication ?Instructions ?Recorded oseltamivir 75 mg capsule (Tamiflu) 75 mg PO BID 4 days #8 caps 07/23/24 oseltamivir 75 mg capsule (Tamiflu) 75 mg PO BID 5 days #10 caps 07/23/24 Allergies Allergy/AdvReac Type Severity Reaction Status Date / Time No Known Drug Allergies Allergy Verified 07/23/24 10:13 Review of Systems Status of ROS: Reports: 10 or more systems reviewed and unremarkable except as noted in History and below Exam Narrative: Exam Narrative: Well-nourished well-developed patient in no acute distress. Alert and oriented. Answers questions appropriately. Mood and affect are appropriate. Thoughts are goal oriented and rational. No tangential or magical thinking noted. Patient speaks in full sentences without needing to catch his breath. HEENT: Normocephalic atraumatic. Pupils are equally round reactive to light. Extraocular muscles are intact. Conjunctivae are moist without any icterus noted. Moist mucous membranes. Posterior pharynx is normal. Neck is soft without any lymphadenopathy or thyromegaly. No masses are appreciated. Cardiovascular: Heart is regular rate and rhythm S1 and S2 are present without any murmurs. Lungs: Clear to auscultation bilaterally no wheezes rhonchi or rales are appreciated. Patient takes deep breaths without any discomfort. Abdomen: Soft and nontender nondistended with normal bowel sounds. No guarding or rebound. No masses or organomegaly appreciated. Extremities: Bilateral lower extremities are without edema. Skin: Well perfused without any obvious rashes. Const: Vital Signs, click to edit/add: Vital Signs - 24 hr 07/23/24 10:15 07/23/24 11:03 07/23/24 11:48 Temperature 101.3 F H 101.3 F H Pulse Rate [Pulse Oximeter] 103 H 94 Respiratory Rate 20 18 Blood Pressure [Ri ght Upper Arm] 170/74 H 133/60 Pulse Oximetry 108 H 95 Oxygen Delivery Me thod Room Air Room Air 07/23/24 11:51 Temperature 99.1 F Pulse Rate [Pulse Oximeter] Respiratory Rate Blood Pressure [Ri ght Upper Arm] Pulse Oximetry Oxygen Delivery Me thod Course Course ED Course: IV established and patient received a L of normal saline and Tylenol. Labs were drawn: Normal venous blood gas. Normal lactate. CBC is unremarkable. Chemistries unremarkable. LFTs unremarkable. Triple swab positive for influenza A. Vital Signs Vital signs: Initial Vital Signs Temperature 101.3 F H 07/23/24 10:15 Temperature Source Temporal Artery Scan 07/23/24 10:15 Pulse Rate 103 H 07/23/24 10:15 Respiratory Rate 20 07/23/24 10:15 Blood Pressure 170/74 H 07/23/24 10:15 Blood Pressure Mean 106 H 07/23/24 10:15 Pulse Oximetry 108 H 07/23/24 10:15 Oxygen Delivery Method Room Air 07/23/24 10:15 Vital Signs Temperature 101.3 F H 07/23/24 10:15 Pulse Rate 103 H 07/23/24 10:15 Respiratory Rate 20 07/23/24 10:15 Blood Pressure 170/74 H 07/23/24 10:15 Pulse Oximetry 108 H 07/23/24 10:15 Oxygen Delivery Method Room Air 07/23/24 10:15 Temperature 99.1 F 07/23/24 11:51 Pulse Rate 94 07/23/24 11:48 Respiratory Rate 18 07/23/24 11:48 Blood Pressure 133/60 07/23/24 11:48 Pulse Oximetry 95 07/23/24 11:48 Oxygen Delivery Method Room Air 07/23/24 11:48 Medications Administered Medications: Discontinued Medications Generic Name Dose Route Start Last Admin Trade Name Freq PRN Reason Stop Dose Admin Acetaminophen 1,000 mg 07/23/24 10:50 07/23/24 11:03 Acetaminophen 500 Mg Tablet PO 07/23/24 10:51 1,000 mg ONCE ONE Administration Sodium Chloride 1,000 mls @ 1,000 mls/hr 07/23/24 11:00 07/23/24 11:03 0.9 % Sodium Chloride 1000 Ml IV 07/23/24 11:59 1,000 mls/hr .Q1H YOLANDA Administration Medical Decision Making MDM Narrative Medical decision making narrative: 23-year-old male with influenza. Patient will be treated with Zofran and Tamiflu. Lab Data Lab results reviewed: Yes I reviewed the patient's lab results Labs: Lab Results 07/23/24 07/23/24 Range/Units 10:20 11:12 WBC 6.52 (4.50-11.00) K/uL RBC 5.02 (4.30-5.90) m/uL Hgb 15.3 (13.5-17.5) gm/dL Hct 44.4 (37.0-53.0) % MCV 88 (80-100) fL MCH 31 (26-34) pg MCHC 35 (32-36) gm/dL RDW Coeff of Magalys 11.5 (11.5-15.5) % Plt Count 168 (140-440) K/uL Neut % (Auto) 76.2 H (42.0-72.0) % Lymph % (Auto) 6.6 L (20-44) % [place] % (Auto) 16.7 H (0.0-11.0) % Eos % (Auto) 0.2 (0.0-7.0) % Baso % (Auto) 0.3 (0.0-3.0) % Neut # (Auto) 5.00 (1.7-7.0) K/uL Lymph # (Auto) 0.40 L (0.90-2.90) K/uL [place] # (Auto) 1.10 H (0.00-0.90) K/UL Eos # (Auto) 0.01 (0.00-0.50) K/uL Baso # (Auto) 0.02 (0.00-0.30) K/uL Abs Immat Gran (auto) 0.00 (0.00-0.30) K/uL Imm/Tot Granulo (auto) 0.0 % VBG pH 7.402 (7.32-7.43) VBG pCO2 43 (40-50) mmHG VBG pO2 43.5 (25-47) mmHG VBG HCO3 27 (21-28) mmol/L Sodium 137 (135-149) mmol/L Potassium 4.0 (3.6-5.1) mmol/L Chloride 105 (96-114) mmol/L Carbon Dioxide 26 (20-32) mmol/L Anion Gap 6 L (7-15) mEq/L BUN 12 (5-24) mg/dL Creatinine 1.1 (0.5-1.5) mg/dL Estimated Creat Clear 106.92 Estimated GFR 96 ml/min Glucose 158 H (60-115) mg/dL Lactate 0.8 (0.5-1.9) mmol/L Calcium 9.1 (8.4-10.6) mg/dL Total Bilirubin 0.8 (0.1-1.5) mg/dL Direct Bilirubin 0.3 (0.0-0.5) mg/dL AST 29 (12-35) U/L ALT 21 (4-50) U/L Alkaline Phosphatase 60 (40-150) U/L Total Protein 7.1 (6.0-8.3) g/dL Albumin 4.5 (3.3-5.0) g/dL SARS-CoV-2 (PCR) Negative SARS-CoV-2 (Negative) Influenza Type A (PCR) POSITIVE PCR FLU A A (Negative) Influenza Type B (PCR) Negative PCR FLU B (Negative) RSV (PCR) Negative PCR RSV (Negative) Discharge Plan Discharge Clinical Impression: Influenza Patient Disposition: Home, Self-Care Condition: Stable Additional Instructions: Increase fluid intake. Can start taking Tamiflu. This can worsen vomiting - if that occurs stop taking it. Okay to use ibuprofen and/or Tylenol as needed/as directed for aches and pains and fever. Zofran and Tamiflu sent to [facility]. Prescriptions: New oseltamivir [Tamiflu] 75 mg capsule 75 mg PO BID 5 Days Qty: 10 0RF oseltamivir [Tamiflu] 75 mg capsule 75 mg PO BID 4 Days Qty: 8 0RF No Action levothyroxine 137 mcg tablet 137 mcg PO DAILY insulin aspart U-100 [Novolog U-100 Insulin aspart] 100 unit/mL solution 0 - 85 unit subcut DAILY lisinopril 10 mg tablet PO Follow Up/Referrals: Iva Duncan MD [Primary Care Provider] - Stand Alone Forms: [employer] Info Instructions
[2024-07-23 11:28] LABS: Basophils Absolute Auto 0.02 K/uL (0.00-0.30); Basophils Percent Auto 0.3 % (0.0-3.0); Eosinophils Absolute Auto 0.01 K/uL (0.00-0.50); Eosinophils Percent Auto 0.2 % (0.0-7.0); Hematocrit 44.4 % (37.0-53.0); Hemoglobin* 15.3 gm/dL (13.5-17.5); Lymphocytes Percent Auto 6.6 % (20-44); Mean Corpuscular HGB Conc 35 gm/dL (32-36); Mean Corpuscular Hemoglobin 31 pg (26-34); Mean Corpuscular Volume 88 fL (80-100); Monocytes Percent Auto 16.7 % (0.0-11.0); Neutrophils Percent Auto 76.2 % (42.0-72.0); Platelet Count* 168 K/uL (140-440); RDW Coefficient of Variation % 11.5 % (11.5-15.5); Red Blood Count 5.02 m/uL (4.30-5.90); White Blood Count* 6.52 K/uL (4.50-11.00)
[2024-07-23 11:35] LABS: Slide Review Reflex No
[2024-07-23 11:48] VITALS: BP 133/60; PULSE 94; RESP 18; O2SAT 95
[2024-07-23 11:51] VITALS: TEMP 37.3
[2024-07-23 11:55] LABS: Albumin* 4.5 g/dL (3.3-5.0)
[2024-07-23 11:56] LABS: Chloride* 105 mmol/L (96-114); Sodium* 137 mmol/L (135-149)
[2024-07-23 11:58] LABS: Alkaline Phosphatase* 60 U/L (40-150); Aspartate Amino Transferase* 29 U/L (12-35); Bilirubin Direct* 0.3 mg/dL (0.0-0.5); Bilirubin Total* 0.8 mg/dL (0.1-1.5); Total Protein* 7.1 g/dL (6.0-8.3)
[2024-07-23 11:59] LABS: Alanine Aminotransferase* 21 U/L (4-50); Anion Gap 6 mEq/L (7-15); Blood Urea Nitrogen* 12 mg/dL (5-24); Carbon Dioxide* 26 mmol/L (20-32); Creatinine* 1.1 mg/dL (0.5-1.5); Est. Creatinine Clearance* 106.92; Estimated Glomerular Filt Rate 96 ml/min
[2024-07-23 12:00] LABS: Calcium* 9.1 mg/dL (8.4-10.6); Glucose* 158 mg/dL (60-115)
== END 2024-07-23 13:16 | disposition home or self-care (01) ==
PROVIDERS: Emergency Provider Family Medicine; PCP Pediatrics
DX: J09.X2 Influenza due to identified novel influenza A virus with other respiratory manifestations (principal)
CPT/HCPCS: 36415; 80048; 80076; 81001; 82803; 83605; 85025; 87086; 87631; 99283; 99284; A9270; J7030